=== PATIENT | female | born 1990 | race Hispanic/Latino ===

== ENCOUNTER → 2019-05-31 | Outpatient (CLI) | payer OTHER | LOC: M LAB 09:03 | PROVIDERS: ATTEND Nurse Practitioner Family | DX: O02.81 Inappropriate change in quantitative human chorionic gonadotropin (hCG) in early pregnancy (principal) ==

== ENCOUNTER → 2019-06-02 | Outpatient (CLI) | payer OTHER | LOC: M LAB 10:58 | PROVIDERS: ATTEND Physician Assistant | DX: O02.81 Inappropriate change in quantitative human chorionic gonadotropin (hCG) in early pregnancy (principal) ==